=== PATIENT | female | born 1960 | race Caucasian/White ===

== ENCOUNTER → 2016-11-19 | Outpatient (CLI) | payer OTHER ==
[~2016-11-19] MED LIST: GABAPENTIN100 MG PO; LEVOTHROID0.075 MG PO; PRILOSEC20 MG PO; SPIRIVA HA1 PUFF/INH IH
== END ==
LOC: SL 14:38
DX: I10 Essential (primary) hypertension (principal); R06.83 Snoring; R41.840 Attention and concentration deficit